=== PATIENT | male | born 1960 | race Caucasian/White ===

== ENCOUNTER 2018-05-26 02:54 | Inpatient (IN) ==
[~2018-05-26 02:54] MED LIST: *HR* Dextrose 50 % in Water (Syg) 50 ML SYRINGE IVP PRN; 0.9 % Sodium Chloride 1,000 ML IVC SCH; Acetaminophen 325 MG TABLET PO PRN; D5% in Water 1,000 ML IVC PRN; Dextrose 4 GM Chewable Tablets PO PRN; Dextrose Gel 15 GM/37.5 ML TUBE PO PRN; Naloxone 0.4 MG/ML INJ IVP PRN; Ondansetron 4 MG/2 ML VIAL IVP PRN
--- NOTE | 2018-05-26 03:10 | Internal Med History&Physical ---
Date of Encounter: 05/26/18 Time of Encounter: 01:45 Internal Medicine - H&P: HPI Chief complaint: pyelonephritis; hematuria Admitted From: Hospital to Hospital Transfer Plans for Post Hospital Care: Home History of present illness: Mr. Trejo is a 57 year old male who presents in transfer from [facility] ER in [place]. He presented there with complaints of hematuria, flank pain, nausea, vomiting, and suprapubic pain. Symptoms started several days ago and have progressively worsened. He therefore went to the ER there were he was worked up and found to have evidence of pyelonephritis and cystitis. There was no evidence of hydronephrosis. Patient requested transfer to [facility] and I was contacted for transfer request. I discussed this with the ER physician and accepted the patient in transfer. 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 I discussed this with Dr. Ellis, and he will see patient in consult as well. Upon my assessment of the patient, patient is lying in bed comfortably with minimal pain now. He confirms above history. He has had subjective fevers but no overt fevers. He denies any night sweats or chills. He has had some nausea, vomiting, and he confirms the flank pain as well. He has never had hematuria before. He denies any prostate problems. He recently had his gallbladder removed last month here by Dr. Fisher. He denies any GI upset with any food intolerance. Patient is diabetic and he states his glucose control has been suboptimal lately. He does smoke. However, denies any alcohol use. Patient has history of coronary artery disease and is 5 years status post CABG. He states he has been having chronic chest pain ever since his surgery and related it to poor sternal wound healing. This has been unchanged. Past Med Surg Social Fam HX - Past Medical History Attestation: Yes The following information was validated with the patient. Source: patient, old records reviewed Medical history: coronary artery disease, diabetes, GERD, hyperlipidemia, hypertension, myocardial infarction Psychiatric history: anxiety, depression - Past Surgical History Surgical History: cholecystectomy, coronary bypass (CABG) - Social History Smoking Status: Current every day smoker Packs per day: 2 Smokeless Tobacco Status: No Alcohol use: none Drug use: marijuana Current living situation: Home, With Family Activity Level: Independent ambulation Recent Out of Country Travel Within the Last 8 Weeks: No - Family History Mother Hx Family Cardiac Disorders: Yes Hx Family Cancer: Yes Internal Medicine - H&P: Meds Albuterol Sulfate [Ventolin Hfa] 2 puff IH Q4H PRN 04/02/18 [History] Aspirin Enteric Coated [Aspirin EC] 81 mg PO DAILY 04/02/18 [History] Glimepiride [Amaryl] 2 mg PO DAILY 04/02/18 [History] Lisinopril [Zestril] 10 mg PO DAILY 04/02/18 [History] Metformin HCl 1,000 mg PO DAILY 04/02/18 [History] [place]-3/Dha/Epa/Fish Oil [Fish Oil 1,000 mg Softgel] 1 cap PO DAILY 04/02/18 [History] Omeprazole [PriLOSEC] 40 mg PO DAILY 04/02/18 [History] Pravastatin Sodium [Pravachol] 40 mg PO HS 04/02/18 [History] Cyclobenzaprine [Flexeril] 10 mg PO TID #21 tablet 04/12/18 [Rx] Duloxetine HCl [Cymbalta] 30 mg PO QAM 04/12/18 [History] Escitalopram [Lexapro] 10 mg PO DAILY 04/12/18 [History] Lansoprazole [Prevacid] 30 mg PO QAM 04/12/18 [History] Metoprolol [Lopressor] 25 mg PO BID 04/12/18 [History] Tiotropium [place] [Spiriva Respimat] 4 gm IH QAM 04/12/18 [History] Allergy/AdvReac Type Severity Reaction Status Date / Time atorvastatin [From Lipitor] Allergy Blister Verified 04/02/18 07:38 fenofibrate [From Tricor] Allergy Blister Verified 04/02/18 07:38 - Constitutional Constitutional: fever(s), no chills, no night sweats - EENT Eyes: no blurry vision, no change in vision Ears: no ear pain, no tinnitus Nose, mouth and throat: no nasal congestion, no sinus pressure, no sore throat - Cardiovascular Cardiovascular ROS IM: chest pain (chronic), dyspnea on exertion, no dyspnea, no orthopnea, no syncope - Respiratory Respiratory: no cough, no hemoptysis, no chest congestion, no excessive phlegm production, no change in phlegm color - Gastrointestinal Gastrointestinal: nausea, vomiting, no abdominal pain, no diarrhea, no hematemesis, no hematochezia, no melena - Genitourinary Genitourinary ROS male: difficulty urinating, dysuria, flank pain, hematuria - Musculoskeletal Musculoskeletal ROS IM: no arthralgias, no back pain - Integumentary Integumentary IM: no rash, no jaundice - Neurological Neurological ROS: no convulsions, no disequilibrium, no dizziness, no focal weakness, no frequent falls - Psychiatric Psychiatric: no anxiety, no depression - Endocrine Endocrine IM: no cold intolerance, no heat intolerance, no polydipsia, no polyuria - Allergic/Immunologic Allergic/Immunologic: no GI upset with certain foods - Constitutional Vitals: Temp Pulse Resp BP Pulse Ox 99.8 F H 70 18 125/69 93 05/26/18 00:46 05/26/18 00:46 05/26/18 00:46 05/26/18 00:46 05/26/18 00:46 General appearance: Present: cooperative, mild distress, A&O X 3, pleasant, answ ers questions appropriately Exam: no acute distress - Head Head exam: Present: atraumatic, normal inspection - Eye Eye exam: Present: EOMI, PERRL. Absent: scleral icterus Pupils: Present: normal accommodation - ENT ENT exam: Present: mucous membranes dry, normal exam, normal oropharynx - Neck Neck exam general surgery: Present: full ROM, supple, trachea midline. Absent: tenderness, nuchal rigidity, thyromegaly - Respiratory Respiratory exam: Present: chest wall tenderness, CTAB, prolonged expiratory phase. Absent: rales, respiratory distress, rhonchi, wheezes, tachypnea - Cardiovascular Cardiovascular exam: Present: RRR, +S1, +S2. Absent: diastolic murmur, systolic murmur - GI/Abdominal GI/Abdominal exam: Present: normal bowel sounds, soft, tenderness (suprapubic tenderness). Absent: guarding, hepatomegaly, mass, rebound, splenomegaly - Extremities Exam Extremities exam: Present: full ROM, warm, radial pulses palpable and symmetrical. Absent: calf tenderness, pedal edema, tenderness - Back Exam Back exam: Present: CVA tenderness (L), CVA tenderness (R), normal inspection - Neurological Exam Neurological exam: Present: alert, CN II-XII intact, oriented X3, no focal deficits, strengths equal and symetr throughout. Absent: motor sensory deficit - Psychiatric Psychiatric exam: Present: normal affect, normal mood - Skin Skin exam: Present: dry, intact, warm. Absent: rash Internal Med - H&P Results - Labs Labs: I reviewed labs from [facility] and include the following: CT abdomen and pelvis revealed polynephritis and cystitis changes along with the AAA with purulent thrombus. WBC 16.9 Hemoglobin 16.2 Hematocrit 48.2 Platelets 249 Sodium 135 Potassium 4.2 Chloride 102 Carbon dioxide 28 Creatinine 1.3 Urinalysis positive for: too numerous to count white cells per high-power field, large blood, trace ketones, positive nitrates, large leukocyte esterase, turbid urine - Assessment and Plan (1) Pyelonephritis, acute Current Visit: Yes Status: Acute Assessment and plan: 1. Will culture blood and urine. 2. Will continue IV Rocephin and follow cultures and clinical course. 3. Pain and nausea control. (2) Hematuria Current Visit: Yes Status: Acute Assessment and plan: 1. Likely due to cystitis/pyelonephritis. 2. Will consult urology to further assess/follow up as outpatient. Qualifiers: Hematuria type: unspecified type Qualified Code(s): R31.9 - Hematuria, unspecified (3) AAA (abdominal aortic aneurysm) Current Visit: Yes Status: Chronic Assessment and plan: 1. Discussed with Dr. Ellis. 2. Patient has never seen or followed up with a vascular surgeon. 3. Vascular surgery consult as above. Qualifiers: Presence of rupture: without rupture Qualified Code(s): I71.4 - Abdominal aortic aneurysm, without rupture (4) Chest pain Current Visit: Yes Status: Chronic Assessment and plan: 1. Likely musculoskeletal. 2. Will trend troponins and EKG's. 3. Will order ECHO. 4. Follow clinically. Qualifiers: Chest pain type: intercostal pain Qualified Code(s): R07.82 - Intercostal pain (5) DVT prophylaxis Current Visit: Yes Status: Acute Assessment and plan: 1. EPCD's. 2. NO AC due to hematuria.
[2018-05-26] MEDS: traMADol 50 MG TABLET PO PRN ×3 (03:33→23:36)
[2018-05-26] MEDS: 0.9 % Sodium Chloride 1,000 ML IVC SCH ×3 (03:53→23:37)
[2018-05-26 04:14] LABS: Basophils # 0.1 K/mcL (0.0-0.2); Basophils % 0.4 %; Eosinophils # 0.3 K/mcL (0.0-0.6); Eosinophils % 1.9 %; Hematocrit 41.5 % (37.5-50.1); Immature Granulocytes % 0.7 % (0-4); Lymphocytes # 2.6 K/mcL (0.6-4.6); Lymphocytes % 18.8 %; Mean Corpuscular HGB Conc 33.7 g/dL (31.6-35.5); Mean Corpuscular Hemoglobin 29.7 pg (28.0-33.3); Mean Corpuscular Volume 88.1 fL (83.0-100.0); Mean Platelet Volume 10.4 fL (9.4-12.4); Monocytes # 1.2 K/mcL (0.0-1.3); Monocytes % 9.1 %; Neutrophils # 9.4 K/mcL (1.6-8.9); Platelet Count 204 K/mcL (140-400); Red Blood Count 4.71 M/mcL (4.19-5.50); Red Cell Distribution Width 13.1 % (11.5-14.5); Segmented Neutrophils % 69.1 %
[2018-05-26 04:20] LABS: INR 1.2; Prothrombin Time 13.4 Seconds (9.4-12.1)
[2018-05-26 04:23] LABS: Activated Partial Thrombo Time 28.9 Seconds (26.0-36.0)
[2018-05-26 04:27] LABS: Alanine Aminotransferase 7 Units/L (7-52); Albumin 3.4 g/dL (3.5-5.7); Albumin/Globulin Ratio 1.1 (1.1-2.2); Alkaline Phosphatase 62 Units/L (34-104); Aspartate Amino Transferase 8 Units/L (13-39); BUN/Creatinine Ratio 14 (6-26); Bilirubin,Total 0.6 mg/dL (0.3-1.0); Blood Urea Nitrogen 14 mg/dL (6-20); Calcium 8.6 mg/dL (8.6-10.3); Carbon Dioxide 26 mEq/L (23-29); Chloride 103 mEq/L (98-107); Globulin 3.2 g/dL (2.4-3.5); Glucose 85 mg/dL (70-105); Magnesium 1.7 mg/dL (1.6-2.6); Osmolality,Calculated 282 (280-300); Potassium 3.9 mEq/L (3.5-5.1); Sodium 136 mEq/L (136-145); Total Protein 6.6 g/dL (6.4-8.9); eGFR For Non-African Americans > 60 (> 60)
[2018-05-26 04:39] LABS: Bacteria,Urine None Seen per hpf (None-Few); Bilirubin,Urine Negative (Negative); Blood,Urine Moderate (Negative); Clarity,Urine Cloudy (Clear); Color,Urine Dark Yellow (Yellow); Glucose,Urine (UA) Normal (Normal); Hyaline Casts,Urine None Seen per lpf (None-Few); Ketones,Urine Negative (Negative); Leukocyte Esterase,Urine Small (Negative); Nitrite,Urine Negative (Negative); Protein,Urine 100 mg/dL (Neg-Trace); RBC,Urine 50-100 per hpf (0-3); Specific Gravity,Urine 1.018 (1.010-1.025); Squamous Epithelial Cell,Urine Many per lpf (None-Few); WBC,Urine 30-50 per hpf (0-3)
[2018-05-26 04:57] LABS: Estimated Average Glucose 131 mg/dl; Hemoglobin A1C 6.2 %
[2018-05-26] MEDS: Tiotropium 18 MCG inhalation IH SCH (07:45)
[2018-05-26] MEDS: cefTRIAXone 2,000 MG in Water for inj. (sterile) 20 ML 20 ML IVP SCH (07:58)
[2018-05-26] MEDS: Aspirin Enteric Coated 81 MG Tablet PO SCH (07:58)
[2018-05-26] MEDS: Insulin LISPRO 300 UNITS/3 ML VIAL SQ SCH ×3 (07:59→17:50)
--- NOTE | 2018-05-26 08:37 | Urology - Consult Note ---
<Dione Scott N - Last Filed: 05/26/18 08:34> Date of Encounter: 05/26/18 Time of Encounter: 08:25 - Assessment and Plan (1) Hematuria Current Visit: Yes Status: Acute Assessment and plan: Patient is a 57-year-old male who presents the history of gross hematuria. Vital signs are currently stable and afebrile. Patient underwent a CT of the abdomen and pelvis suggestive of cystitis and pyelonephritis. Given patient's past history of hematuria prior to his current infection and his positive social history for tobacco use, patient may require an outpatient cystoscopy in order to directly surveillance the bladder once his infection is cleared. I discussed this with Mr. Trejo, and he agreed and verbalized understanding. Blood and urine cultures are pending. Patient is receiving IV Rocephin. Qualifiers: Hematuria type: unspecified type Qualified Code(s): R31.9 - Hematuria, unspecified (2) Pyelonephritis, acute Current Visit: Yes Status: Acute Assessment and plan: Patient is a 57-year-old male who presents with acute pyelonephritis. Vital signs are currently stable and afebrile. White blood cell count 13.6. Renal function is within normal range and reassuring. Patient admits to improvement with IV fluids and antibiotics. Blood and urine cultures are pending. No urologic surgical intervention anticipated at this time. Urology CN:RY Consult date: 05/26/18 Reason for consult Urology: Other (pyelonephritis) History of present illness: Patient is a 57-year-old male who presents with a history of right pyelonephritis and ascending urinary tract infection. Patient was transferred from [facility] emergency department per patient request after he underwent a CT of the abdomen and pelvis suggesting right pyelonephritis, cystitis, and abdominal aortic aneurysm, 4.4cm. Patient presents with a five-day history of gross hematuria, dysuria, suprapubic pain and right flank pain. Patient denies any fever or chills but states he has experienced intermittent nausea and vomiting. Patient denies any past history of renal stones. Patient admits to some baseline voiding dysfunction with urinary hesitancy, weak stream, postvoid dribbling and nocturia. Patient states it has been several years since he has undergone any type of prostate screening or examination. Patient also reports a history of gross hematuria occurring intermittently over the last several months for which she has not undergone any sort of workup. Patient admits to a 40+ y ear smoking history. Currently, patient is resting comfortably in bed in no apparent distress, and he denies any fever, chills, urgency, frequency, incontinence. Patient reports dysuria and flank pain are improved. Past Med Surg Social Fam HX - Past Medical History Medical history: coronary artery disease, diabetes, GERD, hyperlipidemia, hypertension, myocardial infarction Psychiatric history: anxiety, depression - Past Surgical History Surgical History: cholecystectomy, coronary bypass (CABG) - Social History Smoking Status: Current every day smoker Packs per day: 2 Smokeless Tobacco Status: No Alcohol use: none Drug use: marijuana - Family History Mother Hx Family Cardiac Disorders: Yes Hx Family Cancer: Yes - Additional Family History Additional family history: Patient denies any known past family history of prostate cancer or other malignancy Medications and Allergies Albuterol Sulfate [Ventolin Hfa] 2 puff IH Q4H PRN 04/02/18 [History] Aspirin Enteric Coated [Aspirin EC] 81 mg PO DAILY 04/02/18 [History] Glimepiride [Amaryl] 2 mg PO DAILY 04/02/18 [History] Lisinopril [Zestril] 10 mg PO DAILY 04/02/18 [History] Metformin HCl 1,000 mg PO DAILY 04/02/18 [History] [place]-3/Dha/Epa/Fish Oil [Fish Oil 1,000 mg Softgel] 1 cap PO DAILY 04/02/18 [ History] Omeprazole [PriLOSEC] 40 mg PO DAILY 04/02/18 [History] Pravastatin Sodium [Pravachol] 40 mg PO HS 04/02/18 [History] Cyclobenzaprine [Flexeril] 10 mg PO TID #21 tablet 04/12/18 [Rx] Duloxetine HCl [Cymbalta] 30 mg PO QAM 04/12/18 [History] Escitalopram [Lexapro] 10 mg PO DAILY 04/12/18 [History] Metoprolol [Lopressor] 25 mg PO BID 04/12/18 [History] Tiotropium [place] [Spiriva Respimat] 4 gm IH QAM 04/12/18 [History] Allergy/AdvReac Type Severity Reaction Status Date / Time atorvastatin [From Lipitor] Allergy Blister Verified 04/02/18 07:38 fenofibrate [From Tricor] Allergy Blister Verified 04/02/18 07:38 Review of Systems - Constitutional no chills, no fatigue, no fever(s) - EENT Nose, mouth and throat: no dizziness, no headache(s) - Cardiovascular no chest pain, no diaphoresis, no dyspnea - Respiratory no cough, no dyspnea - Gastrointestinal abdominal pain, nausea, vomiting - Genitourinary dysuria, flank pain, hematuria, post void dribbling, urinary hesitancy, no change in urinary stream, no difficulty urinating, no urinary frequency, no urinary incontinence, no urinary urgency - Musculoskeletal back pain, no muscle weakness - Integumentary no erythema, no rash - Neurological no confusion, no syncope - Psychiatric no anxiety, no confusion - Hematologic/Lymphatic no easy bleeding, no easy bruising - Allergic/Immunologic no throat swelling, no wheezing Exam Initial Vital Signs Temp Pulse Resp BP Pulse Ox 99.8 F H 70 18 125/69 93 05/26/18 00:46 05/26/18 00:46 05/26/18 00:46 05/26/18 00:46 05/26/18 00:46 - General physical appearance Present: well developed, no distress, no pain - Eyes Present: PERRL, normal ocular movement - ENT Present: normal nares, no hearing loss, no congestion - Neck Present: no masses, trachea midline - Respiratory Present: normal respiratory effort - Abdomen Abdomen: Present: soft, tender (right cvat) - Integumentary Present: no rash, no abnormal pigmentation - Neurologic Present: normal coordination Urology Results - Labs 05/26/18 03:51 05/26/18 03:51 Abnormal lab results WBC 13.6 K/mcL (4.3-11.1) H 05/26/18 03:51 Neutrophils # 9.4 K/mcL (1.6-8.9) H 05/26/18 03:51 PT 13.4 Seconds (9.4-12.1) H 05/26/18 03:51 Hemoglobin A1c 6.2 % (-5.6) H 05/26/18 03:51 AST 8 Units/L (13-39) L 05/26/18 03:51 Albumin 3.4 g/dL (3.5-5.7) L 05/26/18 03:51 Urine Clarity Cloudy (Clear) A 05/26/18 04:00 Urine Protein 100 mg/dL (Neg-Trace) H 05/26/18 04:00 Urine Blood Moderate (Negative) H 05/26/18 04:00 Urine Urobilinogen 2.0 mg/dL (Normal) H 05/26/18 04:00 Ur Leukocyte Esterase Small (Negative) H 05/26/18 04:00 Urine Microscopic RBC 50-100 per hpf (0-3) H 05/26/18 04:00 Urine Microscopic WBC 30-50 per hpf (0-3) H 05/26/18 04:00 Ur Squamous Epith Cells Many per lpf (None-Few) H 05/26/18 04:00 Diabetes panel 05/26/18 05/26/18 Range/Units 03:51 03:51 Sodium 136 (136-145) mEq/L Potassium 3.9 (3.5-5.1) mEq/L Chloride 103 (98-107) mEq/L Carbon Dioxide 26 (23-29) mEq/L BUN 14 (6-20) mg/dL Creatinine 1.00 (0.70-1.30) mg/dL Glucose 85 (70-105) mg/dL Hemoglobin A1c 6.2 H ( - 5.6) % Calcium 8.6 (8.6-10.3) mg/dL AST 8 L (13-39) Units/L ALT 7 (7-52) Units/L Alkaline Phosphatase 62 (34-104) Units/L Albumin 3.4 L (3.5-5.7) g/dL Calcium panel 05/26/18 Range/Units 03:51 Calcium 8.6 (8.6-10.3) mg/dL Albumin 3.4 L (3.5-5.7) g/dL Pituitary panel 05/26/18 Range/Units 03:51 Sodium 136 (136-145) mEq/L Potassium 3.9 (3.5-5.1) mEq/L Chloride 103 (98-107) mEq/L Carbon Dioxide 26 (23-29) mEq/L BUN 14 (6-20) mg/dL Creatinine 1.00 (0.70-1.30) mg/dL Glucose 85 (70-105) mg/dL Calcium 8.6 (8.6-10.3) mg/dL Adrenal panel 05/26/18 Range/Units 03:51 Sodium 136 (136-145) mEq/L Potassium 3.9 (3.5-5.1) mEq/L Chloride 103 (98-107) mEq/L Carbon Dioxide 26 (23-29) mEq/L BUN 14 (6-20) mg/dL Creatinine 1.00 (0.70-1.30) mg/dL Glucose 85 (70-105) mg/dL Calcium 8.6 (8.6-10.3) mg/dL Total Bilirubin 0.6 (0.3-1.0) mg/dL AST 8 L (13-39) Units/L ALT 7 (7-52) Units/L Alkaline Phosphatase 62 (34-104) Units/L Albumin 3.4 L (3.5-5.7) g/dL All other labs normal. Consult Discharge Plan - Plan Referrals: NONE,PCP [Primary Care Provider] - <Jj Roberts - Last Filed: 05/26/18 15:41> Date of Encounter: 05/26/18 - Assessment and Plan (1) Dysuria Current Visit: Yes Status: Acute Assessment and plan: Patient's symptoms could be related to either UTI but I do question whether this could be from prostatitis. We will follow-up tomorrow with the patient. If I have more concern for prostatitis patient will need to be total course of antibiotics. Urology CN:[facility] Requesting physician: Graham Chamberlain History of present illness: Patient was seen and examined independently. I agree with the plan as written by Dioen Scott. At this time I question whether the patient had pyelonephritis or significant prostatitis. Patient is having discomfort when he voids. His urine in the urinal is very yellow consistent with dehydration. Patient readily admits that he does not drink very much water. At this time continue with broad-spectrum antimicrobial coverage as well as IV fluids. I have encouraged the patient to drink more water. Patient will likely require 2- 3 week total course of antibiotics. Patient will require outpatient cystoscopy given history of hematuria as well as smoking history. We will follow-up with the patient tomorrow regarding improvement or lack thereof of his symptoms. Exam Initial Vital Signs Temp Pulse Resp BP Pulse Ox 99.8 F H 70 18 125/69 93 05/26/18 00:46 05/26/18 00:46 05/26/18 00:46 05/26/18 00:46 05/26/18 00:46 - Neck Present: no lymphadenopathy - Cardiovascular Cardiovascular exam IM: RRR (no jvd) - Genitourinary normal penis with no external lesions - Musculoskeletal Present: other (from x4 ) Urology Results - Labs 05/26/18 03:51 05/26/18 03:51 Abnormal lab results WBC 13.6 K/mcL (4.3-11.1) H 05/26/18 03:51 Neutrophils # 9.4 K/mcL (1.6-8.9) H 05/26/18 03:51 PT 13.4 Seconds (9.4-12.1) H 05/26/18 03:51 POC Glucose 154 mg/dL (70-99) H 05/26/18 11:23 Hemoglobin A1c 6.2 % (-5.6) H 05/26/18 03:51 AST 8 Units/L (13-39) L 05/26/18 03:51 Albumin 3.4 g/dL (3.5-5.7) L 05/26/18 03:51 Urine Clarity Cloudy (Clear) A 05/26/18 04:00 Urine Protein 100 mg/dL (Neg-Trace) H 05/26/18 04:00 Urine Blood Moderate (Negative) H 05/26/18 04:00 Urine Urobilinogen 2.0 mg/dL (Normal) H 05/26/18 04:00 Ur Leukocyte Esterase Small (Negative) H 05/26/18 04:00 Urine Microscopic RBC 50-100 per hpf (0-3) H 05/26/18 04:00 Urine Microscopic WBC 30-50 per hpf (0-3) H 05/26/18 04:00 Ur Squamous Epith Cells Many per lpf (None-Few) H 05/26/18 04:00 Diabetes panel 05/26/18 05/26/18 Range/Units 03:51 03:51 Sodium 136 (136-145) mEq/L Potassium 3.9 (3.5-5.1) mEq/L Chloride 103 (98-107) mEq/L Carbon Dioxide 26 (23-29) mEq/L BUN 14 (6-20) mg/dL Creatinine 1.00 (0.70-1.30) mg/dL Glucose 85 (70-105) mg/dL Hemoglobin A1c 6.2 H ( - 5.6) % Calcium 8.6 (8.6-10.3) mg/dL AST 8 L (13-39) Units/L ALT 7 (7-52) Units/L Alkaline Phosphatase 62 (34-104) Units/L Albumin 3.4 L (3.5-5.7) g/dL Calcium panel 05/26/18 Range/Units 03:51 Calcium 8.6 (8.6-10.3) mg/dL Albumin 3.4 L (3.5-5.7) g/dL Pituitary panel 05/26/18 Range/Units 03:51 Sodium 136 (136-145) mEq/L Potassium 3.9 (3.5-5.1) mEq/L Chloride 103 (98-107) mEq/L Carbon Dioxide 26 (23-29) mEq/L BUN 14 (6-20) mg/dL Creatinine 1.00 (0.70-1.30) mg/dL Glucose 85 (70-105) mg/dL Calcium 8.6 (8.6-10.3) mg/dL Adrenal panel 05/26/18 Range/Units 03:51 Sodium 136 (136-145) mEq/L Potassium 3.9 (3.5-5.1) mEq/L Chloride 103 (98-107) mEq/L Carbon Dioxide 26 (23-29) mEq/L BUN 14 (6-20) mg/dL Creatinine 1.00 (0.70-1.30) mg/dL Glucose 85 (70-105) mg/dL Calcium 8.6 (8.6-10.3) mg/dL Total Bilirubin 0.6 (0.3-1.0) mg/dL AST 8 L (13-39) Units/L ALT 7 (7-52) Units/L Alkaline Phosphatase 62 (34-104) Units/L Albumin 3.4 L (3.5-5.7) g/dL All other labs normal.
--- NOTE | 2018-05-26 09:37 | Vascular/Endovasc Consult Note ---
Date of Encounter: 05/26/18 Time of Encounter: 07:50 Assessment and Plan (1) AAA (abdominal aortic aneurysm) Current Visit: Yes Status: Chronic The pathophysiology and natural history of abdominal aortic aneurysms was discussed the patient and all questions were answered. The patient has a stable unruptured abdominal aortic aneurysm. His laminar thrombus as expected in his abdominal aortic aneurysm. Continue surveillance is recommended. An aortic duplex is recommended in 1 year. The patient may follow-up in vascular clinic. Qualifiers: Presence of rupture: without rupture Qualified Code(s): I71.4 - Abdominal aortic aneurysm, without rupture (2) PVD (peripheral vascular disease) Current Visit: Yes Status: Chronic The pathophysiology and natural history of peripheral vascular disease discussed the patient and all questions were answered. The patient has a possible iliac stenosis on recent CT scan. However the patient does have palpable femoral pulses bilaterally. He denies disabling claudication, rest pain, ulceration or gangrene. The patient may be followed clinically. He may follow-up in vascular clinic. (3) Essential hypertension Current Visit: Yes Status: Chronic (4) Mixed hyperlipidemia Current Visit: Yes Status: Chronic (5) Obesity (BMI 30.0-34.9) Current Visit: Yes Status: Chronic (6) Tobacco abuse Current Visit: Yes Status: Chronic The patient was counseled regarding smoking cessation. - History of Present Illness Consult date: 05/26/18 Requesting physician: Graham Chamberlain Consult reason: Abdominal aortic aneurysm. Chief complaint: Pyelonephritis History of present illness: Mr. Trejo is a 57 year old male with a history of coronary artery disease, diabetes, hyperlipidemia, hypertension and 18 a dominant aortic aneurysm. The patient was transferred to [place] from [facility] due to pyelonephritis. Prior to transfer he underwent a CT scan of the abdomen and pelvis which revealed his abdominal aortic aneurysm. Vascular surgery was counseled for further evaluation. The patient states that he is unaware of an abdominal aortic aneurysm. He denies any acute onset abdominal or back pain. He does have chronic back pain. He also complains of flank pain to discuss recent diagnosis of pyelonephritis. His CT scan also revealed a possible iliac stenosis. The patient denies disabling claudication, rest pain, ulceration or gangrene. Patient does report fevers, suprapubic pain and nausea related to his diagnosis of pyelonephritis. He currently denies any chest pain or shortness of breath. He is resting comfortably. Past Med Surg Social Fam HX - Past Medical History Medical history: coronary artery disease, diabetes, GERD, hyperlipidemia, hypertension, myocardial infarction Psychiatric history: anxiety, depression - Past Surgical History Surgical History: cholecystectomy, coronary bypass (CABG) - Social History Smoking Status: Current every day smoker Packs per day: 2 Smokeless Tobacco Status: No Alcohol use: none Drug use: marijuana - Family History Mother Hx Family Cardiac Disorders: Yes Hx Family Cancer: Yes Father Living Status: Age at : 55 Medications and Allergies Albuterol Sulfate [Ventolin Hfa] 2 puff IH Q4H PRN 04/02/18 [History] Aspirin Enteric Coated [Aspirin EC] 81 mg PO DAILY 04/02/18 [History] Metformin HCl 1,000 mg PO BID 04/02/18 [History] Amo-3/Dha/Epa/Fish Oil [Fish Oil 1,000 mg Softgel] 1 cap PO DAILY 04/02/18 [History] Pravastatin Sodium [Pravachol] 40 mg PO HS 04/02/18 [History] RX: Glimepiride [Amaryl] 2 mg PO DAILY 04/02/18 [History] RX: Lisinopril [Zestril] 10 mg PO DAILY 04/02/18 [History] RX: Omeprazole [PriLOSEC] 40 mg PO DAILY 04/02/18 [History] Escitalopram [Lexapro] 10 mg PO DAILY 04/12/18 [History] Metoprolol [Lopressor] 25 mg PO BID 04/12/18 [History] RX: Buspirone HCl [Buspar] 15 mg PO DAILY 05/27/18 [History] RX: Fluticasone/Vilanterol [Breo Ellipta 100-25 Mcg INH] 1 puff IH DAILY 05/27/18 [History] RX: LORazepam [Ativan] 1 mg PO DAILY PRN 05/27/18 [History] Tramadol HCl [Ultram] 50 mg PO QID PRN 05/27/18 [History] Allergy/AdvReac Type Severity Reaction Status Date / Time atorvastatin [From Lipitor] Allergy Blister Verified 05/27/18 13:59 fenofibrate [From Tricor] Allergy Blister Verified 05/27/18 13:59 All Systems Review: The remainder of the systems were reviewed and are negative - Constitutional Constitutional: fever(s), no chills - Cardiovascular Cardiovascular: no chest pain at rest, no dyspnea at rest - Gastrointestinal Gastrointestinal: no abdominal pain - Genitourinary Genitourinary: dysuria Exam Vital Signs, Last 4 Hours Temp Pulse Resp BP Pulse Ox 05/26/18 07:45 15 93 05/26/18 07:14 98.5 F 76 15 131/71 93 General: Present: Conversant, No Apparent Distress HEENT: Present: Pupils equal Neck: Absent: Lymphadenopathy, Left Carotid bruit, Right Carotid bruit Cardiac: Present: Reg Rate and Rhythm Lungs: Present: Normal Breath Sounds, No Wheeze, Rales, Rhonchi Neuro: Present: Alert and responsive, No focal deficits noted, Motor nerves grossly intact, Sensory nerves grossly intact Abdomen: Present: Soft, Non-tender Vascular: Present: Normal capillary refill, Pulse, normal. Absent: Cyanosis, Edema Skin: Present: No rashes noted on visualized skin Consult Discharge Plan - Plan Referrals: NONE,PCP [Primary Care Provider] -
--- NOTE | 2018-05-26 14:49 | Event Note ---
Date of Encounter: 05/26/18 Time of Encounter: 14:47 Pt here with UTI/pyelo - improving clinically with IV rocephin, will continue while awaiting UCx - d/c tele and fluids, pt has good PO - encourage ambulation for dvt ppx - Seen by urology who recommended outpatient eval once infection clears to consider cystoscopy given hematuria and hx smoking. - Seen by vascular surgery for AAA 4.4cm, awaiting finalized rec's - pt has chronic chest pain, ECG and trops unremarkable, TTE pending
--- NOTE | 2018-05-26 18:35 | Electrocardiograph Report ---
[address] [place], [place] [address] Test Date: 2018-05-26 Pat Name: Salvador Trejo Department: 115 Room: 3A Gender: M Size Maker: : 1960 Requested By: Graham Chamberlain Order Number: [id number] Reading MD: Pati Hay Measurements Intervals [place] Rate: 70 P: 55 CA: 171 QRS: 68 QRSD: 105 T: 130 QT: 376 QTc: 397 Interpretive Statements SINUS RHYTHM MODERATE T-WAVE ABNORMALITY, CONSIDER ANTEROLATERAL ISCHEMIA Electronically Signed On 05-26-2018 18:33:38 EST by Pati Hay
[2018-05-27 04:37] LABS: Hematocrit 39.3 % (37.5-50.1); Hemoglobin 13.6 g/dL (12.9-16.9); Mean Corpuscular HGB Conc 34.6 g/dL (31.6-35.5); Mean Corpuscular Hemoglobin 29.7 pg (28.0-33.3); Mean Corpuscular Volume 85.8 fL (83.0-100.0); Mean Platelet Volume 10.6 fL (9.4-12.4); Platelet Count 205 K/mcL (140-400); Red Blood Count 4.58 M/mcL (4.19-5.50); Red Cell Distribution Width 12.9 % (11.5-14.5)
[2018-05-27 04:52] LABS: BUN/Creatinine Ratio 14 (6-26); Blood Urea Nitrogen 12 mg/dL (6-20); Calcium 8.5 mg/dL (8.6-10.3); Carbon Dioxide 25 mEq/L (23-29); Chloride 107 mEq/L (98-107); Glucose 118 mg/dL (70-105); Magnesium 1.8 mg/dL (1.6-2.6); Osmolality,Calculated 285 (280-300); Sodium 137 mEq/L (136-145); eGFR For Non-African Americans > 60 (> 60)
--- NOTE | 2018-05-27 08:51 | Urology Progress Note ---
<Dione Scott N - Last Filed: 05/27/18 08:47> Date of Encounter: 05/27/18 Time of Encounter: 08:10 - Assessment and Plan (1) Hematuria Current Visit: Yes Status: Acute Assessment and plan: Patient is a 57-year-old male who presents with a history of gross hematuria. Hematuria is resolved during his hospital stay. Hemoglobin is stable. We will plan to proceed with an outpatient cystoscopy in order to evaluate patient's bladder. Qualifiers: Hematuria type: unspecified type Qualified Code(s): R31.9 - Hematuria, unspecified (2) Dysuria Current Visit: Yes Status: Acute Assessment and plan: Patient is a 57-year-old male who presents the history of dysuria and hematuria. Vital signs are currently stable and afebrile. White blood cell count and renal function are reassuring. Urine culture is negative for growth. Discussed concern for prostatitis versus pyelonephritis. Patient is receiving IV Rocephin. Patient will likely benefit from a three-week oral course of antibiotics. We will plan outpatient follow-up for reevaluation. Progress Note Subjective: no new complaints, feels better Narrative: Patient seen and examined sitting upright in bed in no apparent distress. Pat ient reports dysuria and hematuria is resolving. Patient denies any flank pain, fever, chills. Objective Initial Vital Signs Temp Pulse Resp BP Pulse Ox 99.8 F H 70 18 125/69 93 05/26/18 00:46 05/26/18 00:46 05/26/18 00:46 05/26/18 00:46 05/26/18 00:46 - General physical appearance Present: well developed, no distress, no pain - Respiratory Present: normal expansion, normal respiratory effort - Abdomen Present: soft, non tender - Genitourinary Urine Appearance: Present: Clear - Integumentary Present: no rash, no abnormal pigmentation - Musculoskeletal Present: normal posture - Psychiatric Present: oriented to time, oriented to person, oriented to place, speech is normal, memory intact - Labs 05/27/18 03:48 05/27/18 03:48 Diabetes panel 05/27/18 Range/Units 03:48 Sodium 137 (136-145) mEq/L Potassium 4.0 (3.5-5.1) mEq/L Chloride 107 (98-107) mEq/L Carbon Dioxide 25 (23-29) mEq/L BUN 12 (6-20) mg/dL Creatinine 0.85 (0.70-1.30) mg/dL Glucose 118 H (70-105) mg/dL Calcium 8.5 L (8.6-10.3) mg/dL Calcium panel 05/27/18 Range/Units 03:48 Calcium 8.5 L (8.6-10.3) mg/dL Pituitary panel 05/27/18 Range/Units 03:48 Sodium 137 (136-145) mEq/L Potassium 4.0 (3.5-5.1) mEq/L Chloride 107 (98-107) mEq/L Carbon Dioxide 25 (23-29) mEq/L BUN 12 (6-20) mg/dL Creatinine 0.85 (0.70-1.30) mg/dL Glucose 118 H (70-105) mg/dL Calcium 8.5 L (8.6-10.3) mg/dL Adrenal panel 05/27/18 Range/Units 03:48 Sodium 137 (136-145) mEq/L Potassium 4.0 (3.5-5.1) mEq/L Chloride 107 (98-107) mEq/L Carbon Dioxide 25 (23-29) mEq/L BUN 12 (6-20) mg/dL Creatinine 0.85 (0.70-1.30) mg/dL Glucose 118 H (70-105) mg/dL Calcium 8.5 L (8.6-10.3) mg/dL Consult Discharge Plan - Plan Referrals: NONE,PCP [Primary Care Provider] - <Jj Roberts - Last Filed: 05/27/18 10:12> Date of Encounter: 05/27/18 - Assessment and Plan (1) Dysuria Current Visit: Yes Status: Acute Assessment and plan: Patient was seen and examined independently. Agree with the plan as written by Dione Scott. Patient states that his dysuria is much improved. Hematuria has resolved. Patient still with dark urine in urinal. I have again encouraged the patient to increase water intake. Abdomen was soft. No masses. Regular rate and rhythm. Patient will be scheduled for outpatient cystoscopy on June 16 at 1 PM. Recommend 2 weeks of antibiotics. Cipro being good choice unless outside culture shows resistance. Please call with any questions. Objective Initial Vital Signs Temp Pulse Resp BP Pulse Ox 99.8 F H 70 18 125/69 93 05/26/18 00:46 05/26/18 00:46 05/26/18 00:46 05/26/18 00:46 05/26/18 00:46 - Labs 05/27/18 03:48 05/27/18 03:48 Diabetes panel 05/27/18 Range/Units 03:48 Sodium 137 (136-145) mEq/L Potassium 4.0 (3.5-5.1) mEq/L Chloride 107 (98-107) mEq/L Carbon Dioxide 25 (23-29) mEq/L BUN 12 (6-20) mg/dL Creatinine 0.85 (0.70-1.30) mg/dL Glucose 118 H (70-105) mg/dL Calcium 8.5 L (8.6-10.3) mg/dL Calcium panel 05/27/18 Range/Units 03:48 Calcium 8.5 L (8.6-10.3) mg/dL Pituitary panel 05/27/18 Range/Units 03:48 Sodium 137 (136-145) mEq/L Potassium 4.0 (3.5-5.1) mEq/L Chloride 107 (98-107) mEq/L Carbon Dioxide 25 (23-29) mEq/L BUN 12 (6-20) mg/dL Creatinine 0.85 (0.70-1.30) mg/dL Glucose 118 H (70-105) mg/dL Calcium 8.5 L (8.6-10.3) mg/dL Adrenal panel 05/27/18 Range/Units 03:48 Sodium 137 (136-145) mEq/L Potassium 4.0 (3.5-5.1) mEq/L Chloride 107 (98-107) mEq/L Carbon Dioxide 25 (23-29) mEq/L BUN 12 (6-20) mg/dL Creatinine 0.85 (0.70-1.30) mg/dL Glucose 118 H (70-105) mg/dL Calcium 8.5 L (8.6-10.3) mg/dL
[2018-05-27] MEDS: Tiotropium 18 MCG inhalation IH SCH (09:52)
[2018-05-27] MEDS: Insulin LISPRO 300 UNITS/3 ML VIAL SQ SCH ×3 (10:18→16:12)
[2018-05-27] MEDS: 0.9 % Sodium Chloride 1,000 ML IVC SCH ×3 (10:24→18:09)
[2018-05-27] MEDS: cefTRIAXone 2,000 MG in Water for inj. (sterile) 20 ML 20 ML IVP SCH (10:28)
[2018-05-27] MEDS: Aspirin Enteric Coated 81 MG Tablet PO SCH (10:29)
[2018-05-27] MEDS: traMADol 50 MG TABLET PO PRN ×3 (10:33→23:31)
--- NOTE | 2018-05-27 10:51 | Internal Med Progress Note ---
Hospitalist Progress Note - Encounter Date of Encounter: 05/27/18 Time of Encounter: 10:49 - Subjective Interval History: patient was seen and examined at bedside. reports that he is still having bilateral CVA tenderness. he reports that his dysuria and hematuria have improved. denies fever or chills, N/V/D. denies chest pain- reports that his pain was on palpation of the CABG scar. - Exam Vitals: Temp Pulse Resp BP Pulse Ox 98.1 F 68 15 158/74 96 05/27/18 10:13 05/27/18 10:13 05/27/18 10:13 05/27/18 10:13 05/27/18 10:13 Exam: General: Patient is alert, oriented, no acute distress, these Head: atraumatic, normocephalic, Eye: normal appearance, PERRL, no scleral icterus, no conjunctival injection ENT: mucous membranes moist, normal external ear exam Neck: normal inspection, trachea midline, full ROM, no carotid bruits Chest: normal inspection, symmetric chest rise, well-healed CABG scar, tender to palpation Respiratory: Good respiratory effort. Bilateral breath sounds are clear without wheezing, crackles, or rhonchi. Cardiovascular: Regular rate and rhythm. s1 and s2 No clicks, rubs, gallops, or murmors. Abdomen: Bowel sounds present normoactive x-4 quadrants. Abdomen is soft, nondistended. no Epigastric tenderness. No guarding or rebound. No organomegaly noted, obese, CVA tenderness bilaterally musculoskeletal: Spontaneously moving all extremities. no edema, no calf tenderness Skin: warm, dry, intact. Neuro: Alert and oriented x4no focal deficit Psych: Patient's affect is normal - Assessment and Plan (1) Pyelonephritis, acute Current Visit: Yes Status: Acute Assessment and Plan: was admitted with acute pyelonephritis UCx no growth contine with IV ceftriaxone - will consider transitioning him to PO Abx in the AM BCx NGTD CT A/P at [facility] showed CT of the abdomen and pelvis suggestive of cystitis and pyelonephritis. urology recs appreciated pain control (2) Dysuria Current Visit: Yes Status: Acute Assessment and Plan: Urine culture is negative for growth. prostatitis versus pyelonephritis. Patient is receiving IV Rocephin. Patient will likely benefit from a three-week oral course of antibiotics-as per urology recs will transition him in the AM if vitals continue to remain stable OP follow up with urology (3) Hematuria Current Visit: Yes Status: Acute Assessment and Plan: Likely due to cystitis/prostatitis Hematuria is resolved during his hospital stay. Hemoglobin is stable. outpatient cystoscopy in order to evaluate patient's bladder urology recs appreciated (4) AAA (abdominal aortic aneurysm) Current Visit: Yes Status: Chronic Assessment and Plan: vascular surgery was consulted - The patient has a stable unruptured abdominal aortic aneurysm. continue surveillance is recommended. An aortic duplex is recommended in 1 year. T The patient may follow-up in vascular clinic. (5) Chest pain Current Visit: Yes Status: Chronic Assessment and Plan: chronic chest pain at the CABD scar site troponins negative x 3 ECG: SINUS RHYTHM, MODERATE T-WAVE ABNORMALITY, CONSIDER ANTEROLATERAL ISCHEMIA ( no changes as compared to EKG on 04/12/18) continue with ASA, BB, statins TTE: LVEF 60%. Mild left ventricular diastolic dysfunction. Normal right ventricular structure and function. Mild, eccentric aortic regurgitation not well visualized. No pulmonary hypertension. (6) Obesity (BMI 30.0-34.9) Current Visit: Yes Status: Acute Assessment and Plan: was counseled on diet and exercise (7) Smoker Current Visit: Yes Status: Acute Assessment and Plan: was counseled nicotine patch provided (8) DVT prophylaxis Current Visit: Yes Status: Acute Assessment and Plan: SCDs - Time Spent with Patient Total time spent is greater than 50% in coordination of care (as documented) at patient's floor/unit and/or counseling patient: Internal Medicine: Result - Labs CBC & Chem 7: 05/27/18 03:48 05/27/18 03:48 Labs: Short CBC 05/27/18 Range/Units 03:48 WBC 9.4 (4.3-11.1) K/mcL Hgb 13.6 (12.9-16.9) g/dL Hct 39.3 (37.5-50.1) % Plt Count 205 (140-400) K/mcL BMP 05/27/18 03:48 Sodium 137 Potassium 4.0 Chloride 107 Carbon Dioxide 25 BUN 12 Creatinine 0.85 Glucose 118 H Calcium 8.5 L Cardiac Enzymes 05/26/18 Range/Units 15:06 Troponin I < 0.03 (< 0.04) ng/mL - ABG Interpretation ABG results: PT/INR, D-dimer PT 13.4 Seconds (9.4-12.1) H 05/26/18 03:51 - Impressions Impressions Echocardiogram 05/26/18 02:54 Impressions: LVEF 60%. Mild left ventricular diastolic dysfunction. Normal right ventricular structure and function. Mild, eccentric aortic regurgitation not well visualized. No pulmonary hypertension. Left Ventricular Wall Motion: Rest Echo Findings The mid anterior septal, mid inferior lateral and basal inferior lateral mattson were not visualized. All other wall segments showed normal motion. Findings: Study Quality * Technically challenging due to body habitus. ECG Findings * Normal sinus rhythm. Left Ventricle * LVEF 60%. * Mild left ventricular diastolic dysfunction. * LV chamber size and wall thickness measurements are grossly normal. Right Ventricle * Normal right ventricular structure and function. Left Atrium * Mildly dilated left atrium. Right Atrium * Normal right atrial size. Aortic Valve * Aortic valve not well visualized. * No aortic stenosis by Doppler. Leaflets appear thickened. * Mild, eccentric aortic regurgitation not well visualized. Mitral Valve * No mitral regurgitation. * No mitral stenosis. Tricuspid Valve * Tricuspid valve not well visualized. * Estimated RA pressure is 3 mmHg. * No pulmonary hypertension. Pulmonic Valve * Pulmonic valve not well visualized. * Suboptimal Doppler signal. Pulmonary Artery * Pulmonary artery not well visualized. Aorta * Normally sized aortic root. * Ascending thoracic aorta not well visualized. Pericardium * There is no pericardial effusion present. Interatrial Septum * Interatrial septum not well evaluated. IVC * Normal IVC dimensions and inspiratory collapse. Consult Discharge Plan - Plan Referrals: NONE,PCP [Primary Care Provider] - (3) Hematuria Qualifiers: Hematuria type: unspecified type Qualified Code(s): R31.9 - Hematuria, unspecified (4) AAA (abdominal aortic aneurysm) Qualifiers: Presence of rupture: without rupture Qualified Code(s): I71.4 - Abdominal aortic aneurysm, without rupture (5) Chest pain Qualifiers: Chest pain type: intercostal pain Qualified Code(s): R07.82 - Intercostal pain
[2018-05-27] MEDS: Nicotine 21 MG PATCH.TD24 TD SCH (13:01)
[2018-05-28] MEDS: 0.9 % Sodium Chloride 1,000 ML IVC SCH ×2 (01:41→10:16)
[2018-05-28] MEDS: traMADol 50 MG TABLET PO PRN (05:32)
[2018-05-28 07:51] VITALS: BP 174/84
[2018-05-28] MEDS: Tiotropium 18 MCG inhalation IH SCH (08:00)
[2018-05-28] MEDS: Insulin LISPRO 300 UNITS/3 ML VIAL SQ SCH (08:37)
--- NOTE | 2018-05-28 10:10 | Discharge Summary ---
- NOTES TO OUTPATIENT PROVIDER Notes to Outpatient Provider: follow up with Dr. Wolff your thoracic surgeon/nuclear officer for sternal pain. follow up with BMP in one week for electrolyes and renal functions. fionao with Dr. yuan with urology Orders not resulted at time of discharge: Pending orders 05/26/18 03:54 Culture,Blood [BC] Stat Date of Encounter: 05/28/18 Time of Encounter: 10:08 - Discharge Diagnosis (1) Pyelonephritis, acute Priority: Primary Status: Acute (2) Dysuria Priority: Secondary Status: Acute (3) Hematuria Priority: Secondary Status: Acute Qualifiers: Hematuria type: unspecified type Qualified Code(s): R31.9 - Hematuria, unspecified (4) AAA (abdominal aortic aneurysm) Priority: Secondary Status: Chronic Qualifiers: Presence of rupture: without rupture Qualified Code(s): I71.4 - Abdominal aortic aneurysm, without rupture (5) Chest pain Priority: Secondary Status: Chronic Qualifiers: Chest pain type: intercostal pain Qualified Code(s): R07.82 - Intercostal pain (6) Obesity (BMI 30.0-34.9) Priority: Secondary Status: Chronic (7) Smoker Priority: Secondary Status: Acute (8) DVT prophylaxis Priority: Secondary Status: Acute Hospital course: "Mr. Trejo is a 57 year old male who presents in transfer from [facility] ER in [place]. He presented there with complaints of hematuria, flank pain, nausea, vomiting, and suprapubic pain. Symptoms started several days ago and have progressively worsened. He therefore went to the ER there were he was wor ked up and found to have evidence of pyelonephritis and cystitis. There was no evidence of hydronephrosis. Patient requested transfer to [place] and I was contacted for transfer request. I discussed this with the ER physician and accepted the patient in transfer. 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 I discussed this with Dr. Ellis, and he will see patient in consult as well. Upon my assessment of the patient, patient is lying in bed comfortably with minimal pain now. He confirms above history. He has had subjective fevers but no overt fevers. He denies any night sweats or chills. He has had some nausea, vomiting, and he confirms the flank pain as well. He has never had hematuria before. He denies any prostate problems. He recently had his gallbladder removed last month here by Dr. Fisher. He denies any GI upset with any food intolerance. Patient is diabetic and he states his glucose control has been suboptimal lately. He does smoke. However, denies any alcohol use. Patient has history of coronary artery disease and is 5 years status post CABG. He states he has been having chronic chest pain ever since his surgery and related it to poor sternal wound healing. This has been unchanged." Agent presented with above presentation. Was started on IV ceftriaxone with improvement of his symptoms. Urology was consulted and recommended a 3 week course of oral antibiotics. Urine cultures were negative, blood cultures have been no growth to date. follow BMP and EKG n one week for electrolytes and renal function along with QT Troponins were followed and negative x3, ago cardiogram was performed with LVEF of 60% ( full report below). he follows with Dr. wolff [phone]. reports that he has had a CABG 5 years ago and has had sternal chest pain for the past 5 years. he was told by Dr. wolff that he will be referred to a surgeon at [facility] for further evaluation and management of his Sx. he denies ever being told that he has an infection of his chest. his last stress test was about one month ago prior to his cholecystectomy which he reports he was told that it was "o.k and no changes" and he was cleared for the surgery by his nuclear officer. he is to follow with nuclear officer. he understands that he will need to follow up with Dr. yuan- appointments were made by [facility] for patient. vascular surgery was consulted - The patient has a stable unruptured abdominal aortic aneurysm. continue surveillance is recommended. An aortic duplex is recommended in 1 year. The patient may follow-up in vascular clinic. patient was counseled on diet and exercise along with smoking cessation. TTE LVEF 60%. Mild left ventricular diastolic dysfunction. Normal right ventricular structure and function. Mild, eccentric aortic regurgitation not well visualized. No pulmonary hypertension. Discharge discussed with: patient, family, case management, websphere commerce consultant - Time Spent with Patient Total time spent providing and/or coordinating discharge services: Time spent: Greater than 30 minutes (40) - Discharge Medications Prescriptions: New levoFLOXacin [Levaquin] 750 mg PO DAILY 19 Days #19 tablet Nicotine Patch [Nicoderm] 21 mg TD DAILY #30 patch.td24 Tamsulosin [Flomax] 0.4 mg PO HS #30 capsule Continue Albuterol Sulfate [Ventolin Hfa] 2 puff IH Q4H PRN PRN Reason: Shortness Of Breath Aspirin Enteric Coated [Aspirin EC] 81 mg PO DAILY Glimepiride [Amaryl] 2 mg PO DAILY Lisinopril [Zestril] 10 mg PO DAILY Metformin HCl 1,000 mg PO BID [place]-3/Dha/Epa/Fish Oil [Fish Oil 1,000 mg Softgel] 1 cap PO DAILY Omeprazole [PriLOSEC] 40 mg PO DAILY Pravastatin Sodium [Pravachol] 40 mg PO HS Buspirone HCl [Buspar] 15 mg PO DAILY Fluticasone/Vilanterol [Breo Ellipta 100-25 Mcg INH] 1 puff IH DAILY LORazepam [Ativan] 1 mg PO DAILY PRN PRN Reason: Anxiety Tramadol HCl [Ultram] 50 mg PO QID PRN PRN Reason: Mild To Moderate Pain Metoprolol [Lopressor] 25 mg PO BID Escitalopram [Lexapro] 10 mg PO DAILY Home Medications: Albuterol Sulfate [Ventolin Hfa] 2 puff IH Q4H PRN 04/02/18 [History] Aspirin Enteric Coated [Aspirin EC] 81 mg PO DAILY 04/02/18 [History] Glimepiride [Amaryl] 2 mg PO DAILY 04/02/18 [History] Lisinopril [Zestril] 10 mg PO DAILY 04/02/18 [History] Metformin HCl 1,000 mg PO BID 04/02/18 [History] [place]-3/Dha/Epa/Fish Oil [Fish Oil 1,000 mg Softgel] 1 cap PO DAILY 04/02/18 [History] Omeprazole [PriLOSEC] 40 mg PO DAILY 04/02/18 [History] Pravastatin Sodium [Pravachol] 40 mg PO HS 04/02/18 [History] Escitalopram [Lexapro] 10 mg PO DAILY 04/12/18 [History] Metoprolol [Lopressor] 25 mg PO BID 04/12/18 [History] Buspirone HCl [Buspar] 15 mg PO DAILY 05/27/18 [History] Fluticasone/Vilanterol [Breo Ellipta 100-25 Mcg INH] 1 puff IH DAILY 05/27/18 [History] LORazepam [Ativan] 1 mg PO DAILY PRN 05/27/18 [History] Tramadol HCl [Ultram] 50 mg PO QID PRN 05/27/18 [History] Nicotine Patch [Nicoderm] 21 mg TD DAILY #30 patch.td24 05/28/18 [Rx] Tamsulosin [Flomax] 0.4 mg PO HS #30 capsule 05/28/18 [Rx] levoFLOXacin [Levaquin] 750 mg PO DAILY 19 Days #19 tablet 05/28/18 [Rx] Allergies/Adverse Reactions: Allergy/AdvReac Type Severity Reaction Status Date / Time atorvastatin [From Lipitor] Allergy Blister Verified 05/27/18 13:59 fenofibrate [From Tricor] Allergy Blister Verified 05/27/18 13:59 Date of admission: 05/26/18 02:54 Primary care physician: PCP NONE Consults: 05/26/18 02:54 Consult to Urology [CONS] Routine Consulting Provider: Urology Kerri Reason for Consult: pyelonephritis with hematuria Call Completed: No Consult to Vascular Surgery [CONS] Routine Consulting Provider: Vascular Surgery Kerri Reason for Consult: AAA w mural thrombus Call Completed: Yes - Constitutional Vitals: Temp Pulse Resp BP Pulse Ox 97.7 F 63 16 174/84 95 05/28/18 07:50 05/28/18 07:50 05/28/18 08:00 05/28/18 07:50 05/28/18 08:00 General appearance: Present: cooperative, mild distress, A&O X 3, pleasant, answers questions appropriately Exam: General: Patient is alert, oriented, no acute distress, these Head: atraumatic, normocephalic, Eye: normal appearance, PERRL, no scleral icterus, no conjunctival injection ENT: mucous membranes moist, normal external ear exam Neck: normal inspection, trachea midline, full ROM, no carotid bruits Chest: normal inspection, symmetric chest rise, well-healed CABG scar, Respiratory: Good respiratory effort. Bilateral breath sounds are clear without wheezing, crackles, or rhonchi. Cardiovascular: Regular rate and rhythm. s1 and s2 No clicks, rubs, gallops, or murmors. Abdomen: Bowel sounds present normoactive x-4 quadrants. Abdomen is soft, nondistended. no Epigastric tenderness. No guarding or rebound. No organomegaly noted, obese, no CVA tenderness musculoskeletal: Spontaneously moving all extremities. no edema, no calf tenderness Skin: warm, dry, intact. Neuro: Alert and oriented x4no focal deficit Psych: Patient's affect is normal - Patient Status Disposition: Home, Self-Care Condition: Fair Functional capacity at discharge: independent ambulation Overall status at discharge: patient is progressing back to baseline - Ambulatory Orders Ambulatory Orders: Complete Blood Count w/o Diff [HEME] Time Frame: 1 Week, Facility: [facility], Location: Lab [place] Comprehensive Metabolic Panel [CHEM] Time Frame: 1 Week, Facility: [facility], Location: [facility] - Discharge Instructions Instructions: Levofloxacin (By mouth), Tamsulosin (By mouth), Acute Pyelonephritis (DC) Follow Up With: Jj Roberts MD [Partnered Physician] - 06/16/18 1:00 pm Bunny Hernandez CNP [Advanced Practice Nurse] - 06/05/18 10:30 am Shahida Breaux [Advanced Practice Nurse] - 06/17/18 8:20 am (Dr. Lui has no appointments available at this time. This appointment will be with Ness Breaxu. Thank you) - Diet and Activity Activity: increase activity as tolerated
[2018-05-28] MEDS ORDERED: levoFLOXacin 750 MG TABLET PO SCH (10:15)
[2018-05-28] MEDS: Nicotine 21 MG PATCH.TD24 TD SCH (10:16)
[2018-05-28] MEDS: Aspirin Enteric Coated 81 MG Tablet PO SCH (10:16)
== END 2018-05-28 12:44 | disposition home or self-care (01) | DRG 690 ==
LOC: 3ANU → SUATTDRO 02:54
PROVIDERS: ADMIT Pediatrics; ATTEND Internal Medicine